=== PATIENT | female | born 2000 | race Two or more races ===

== ENCOUNTER 2023-03-24 15:01 | Emergency (ER) | payer OTHER ==
--- NOTE | 2023-03-24 16:02 | ED Physician Documentation ---
PD HPI SKIN - Chief complaint Chief Complaint: Allergic Rx - History obtained from History obtained from: Patient - History of Present Illness Timing - onset: Last night Timing - duration: Days (1) Timing - details: Abrupt onset, Still present Location: [place] (started with itchy rash on arms and neck area last evening without obvious provocation. It continued some overnight despite Benadryl. Has increased to [place] today. 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 No interval rashes/problems.) Recently seen: Clinic (seen at [facility] yesteday and was given topical steroid cream for arms. No oral meds.) PD PAST MEDICAL HISTORY - Present Medications Home Medications: Ambulatory Orders Medication Instructions Recorded Confirmed Cetirizine [ZyrTEC] 10 mg PO BID #20 tablet 03/24/23 dexAMETHasone [Decadron] 4 mg PO DAILY #5 tablet 03/24/23 - Allergies Allergies/Adverse Reactions: Allergies Allergy/AdvReac Type Severity Reaction Status Date / Time No Known Drug Allergies Allergy Verified 03/24/23 15:39 PD ED PE NORMAL - Vitals Vital signs reviewed: Yes - General General: Alert and oriented X 3, No acute distress, Well developed/nourished - HEENT HEENT: Pharynx benign - Neck Neck: Supple, no meningeal sign, No adenopathy - Cardiac Cardiac: RRR, No murmur - Respiratory Respiratory: Clear bilaterally - Derm Derm: Normal color, Warm and dry, Other (some areas of pebbly rash, no blisters, and multiple small welt areas c/w hives. ) - Neuro Neuro: Alert and oriented X 3, No motor deficit, Normal speech Results - Vitals Vitals: Vital Signs - 24 hr 03/24/23 03/24/23 15:36 16:46 Temperature 36.0 C L Heart Rate 71 71 Respiratory 14 14 Rate Blood Pressure 126/73 107/68 O2 Saturation 100 100 Oxygen O2 Source Room air PD Medical Decision Making - ED course Complexity details: considered differential (seems allergic reaction. Unclear trigger by history. Will treat oral steroids and antihistamines. ), d/w patient Departure - Departure Disposition: 01 Home, Self Care Clinical Impression: Allergic reaction Condition: Stable Record reviewed to determine appropriate education?: Yes Instructions: ED Allergic Reaction General Other Follow-Up: [facility] [Provider Group] Prescriptions: dexAMETHasone [Decadron] 4 mg PO DAILY #5 tablet Cetirizine [ZyrTEC] 10 mg PO BID #20 tablet Comments: Its unclear the trigger/cause for your allergic reaction by history. It is not unusual to not have an identified cause. This time a year and can even be environmental/seasonal allergies. I would suggest cetirizine long-acting antihistamine twice daily for the next several days to week. To that add Benadryl every 6 hours if needed for itchiness. To help with the reaction itself, I am prescribing Decadron steroid daily for the next several days. I would anticipate improvement later today into tomorrow and resolution with an a day or 2. Recheck if not better in that timeframe. If its difficult getting better or it does improve and then recurs again soon, then the question would be whether allergy testing etc. would be appropriate. I sent your prescriptions up to [facility]. Off work today and tomorrow as heat and increase activity will persist the reaction. Forms: Activity restrictions Discharge Date/Time: 03/24/23 16:48
[2023-03-24] MEDS ORDERED: FAMOTIDINE 20 MG TABLET PO STA (16:20)
[2023-03-24] MEDS ORDERED: CHERRY SYRUP 10 ML UDC PO ONE (16:20)
[2023-03-24] MEDS ORDERED: CETIRIZINE 10 MG TABLET PO STA (16:20)
[2023-03-24] MEDS ORDERED: DEXAMETHASONE 10 MG/ML VIAL PO STA (16:20)
[2023-03-24 16:49] VITALS: BP 107/68
== END 2023-03-24 16:48 | disposition home or self-care (01) ==
LOC: ED 15:01
DX: T78.49XA Other allergy, initial encounter (principal)
CPT/HCPCS: 99282; 99283; A9270

== ENCOUNTER 2023-11-03 14:14 | Emergency (ER) | payer OTHER ==
[2023-11-03 14:33] VITALS: O2SAT 98
[2023-11-03] MEDS ORDERED: METOCLOPRAMIDE 10 MG/2 ML VIAL IVP STA (16:48)
[2023-11-03] MEDS ORDERED: SODIUM CHLORIDE 0.9% 1,000 ML IV STA (16:48)
[2023-11-03] MEDS ORDERED: KETOROLAC 15 MG/ML VIAL IVP STA (16:48)
--- NOTE | 2023-11-03 16:48 | ED Physician Documentation ---
PD HPI HEADACHE - Stated complaint Stated Complaint: HEAD PX - Chief complaint Chief Complaint: Neuro - History obtained from History obtained from: Patient - Additional information Additional information: 23-year-old female with a history of migraines presents with a left-sided headache similar to all her prior migraine headaches. Symptoms started a few days ago somewhat worse today. No associated neurologic changes, no fever no cough or cold symptoms. She has been taking Excedrin without relief. She does states she got her flu shot today but headache started prior to that. She is never been on any headache medication in the past other than [id number] Tylenol ibuprofen or Excedrin. She states she called the clinic to make an appointment and they told her to come to the ER. Review of Systems Constitutional: reports: Reviewed and negative Eyes: reports: Reviewed and negative Ears: reports: Reviewed and negative Nose: reports: Reviewed and negative Throat: reports: Reviewed and negative Cardiac: reports: Reviewed and negative Respiratory: reports: Reviewed and negative GI: reports: Reviewed and negative : reports: Reviewed and negative Musculoskeletal: reports: Reviewed and negative Neurologic: reports: Headache PD PAST MEDICAL HISTORY - Past Medical History Past Medical History: Yes Cardiovascular: None Respiratory: None Neuro: Migraines Endocrine/Autoimmune: None GI: None 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 : None HEENT: None Psych: None Musculoskeletal: None Derm: None - Past Surgical History Past Surgical History: No - Present Medications Home Medications: Ambulatory Orders Medication Instructions Recorded Confirmed Cetirizine [ZyrTEC] 10 mg PO BID #20 tablet 03/24/23 dexAMETHasone [Decadron] 4 mg PO DAILY #5 tablet 03/24/23 SUMAtriptan [Imitrex] 50 mg PO DAILY PRN #10 tablet 11/03/23 - Allergies Allergies/Adverse Reactions: Allergies Allergy/AdvReac Type Severity Reaction Status Date / Time No Known Drug Allergies Allergy Verified 11/03/23 14:22 - Social History Does the pt smoke?: No Smoking Status: Never smoker Does the pt drink ETOH?: No Does the pt have substance abuse?: No - Immunizations Immunizations are current?: Yes PD ED PE NORMAL - Vitals Vital signs reviewed: Yes - General General: Alert and oriented X 3, No acute distress, Well developed/nourished - HEENT HEENT: Atraumatic, PERRL, EOMI, Moist mucous membranes - Neck Neck: Supple, no meningeal sign, No adenopathy - Derm Derm: Normal color, Warm and dry, No rash - Neuro Neuro: Alert and oriented X 3 Eye Opening: Spontaneous Motor: Obeys Commands Verbal: Oriented GCS Score: 15 - Psych Psych: Normal mood, Normal affect Results - Vitals Vitals: Vital Signs - 24 hr 11/03/23 14:22 Temperature 36.8 C Heart Rate 84 Respiratory 16 Rate Blood Pressure 118/71 O2 Saturation 98 Oxygen O2 Source Room air PD Medical Decision Making - ED course Complexity details: re-evaluated patient, considered differential, d/w patient ED course: 23-year-old female with a past medical history of migraines presents with a migraine that is typical of her prior headaches, dislocation left side of her head, has been present for couple days, and she has no associated neurologic changes. It is not relieved by Excedrin. I discussed with patient that we could try IV medication versus IM medication. Initially she wanted to pursue IV medication however she changed her mind and requested that we give an IM injection therefore she was given Toradol 30 mg IM x 1 here. She has good relief in her headache symptoms and is sitting believe she is stable for discharge home. As this is a chronic issue for her, recommended follow-up with PCP, I will start her on sumatriptan as needed does her other headache medication that may be more effective for her. I do not see any indication for imaging today as this headache is similar to prior and there are no associated neurologic changes. Patient was discharged home in stable condition. Departure - Departure Disposition: 01 Home, Self Care Clinical Impression: Migraine Qualifiers: Migraine type: migraine (< 15 days per month) without aura Status migrainosus presence: without status migrainosus Intractability: not intractable Qualified Code(s): G43.009 - Migraine without aura, not intractable, without status migrainosus Condition: Good Instructions: ED Headache Migraine Prescriptions: SUMAtriptan [Imitrex] 50 mg PO DAILY PRN #10 tablet PRN Reason: Headache Comments: Call your doctor to arrange a follow-up appointment, make the next available appointment. In the interim, return anytime if worse or if new symptoms develop. Forms: PCP List
[2023-11-03] MEDS ORDERED: KETOROLAC 30 MG/ML VIAL IM STA (16:57)
[2023-11-03 18:22] VITALS: BP 116/70
== END 2023-11-03 18:12 | disposition home or self-care (01) ==
LOC: ED 14:14
DX: G43.009 Migraine without aura, not intractable, without status migrainosus (principal)
CPT/HCPCS: 96372; 99283